=== PATIENT | male | born 1950 | race Caucasian/White ===

== ENCOUNTER → 2017-02-22 | Outpatient (CLI) | payer MEDICARE ==
[~2017-02-22] MED LIST: AMINOPHYLLIN200 MG PO; AMLODIPINE BESYL5 MG PO; CARTIA XT120 MG PO; CIPRO500 MG PO; DIGOXIN0.25 MG PO; ELIQUIS5 M1 PO; FINASTERIDE5 M1 PO; FISH OIL1000 MG PO; FISH OIL500 M1 PO; FOSINOPRIL20 MG PO; LANTUS100 U/ML SC; LOPID600 MG PO; LOPRESSOR100 M1 PO; LOPRESSOR100 MG PO; MACROBID100 M1 PO; MAGOX 400400 MG PO; METFORMIN1000 MG PO; MICRONASE5 MG PO; MULTIPLE VITAMI1 CAP PO; NEURONTIN400 MG PO; NOVOLOG10 ML SC; ONDANSETRON HYDR8 MG PO; ONGLYZA5 MG PO; PRADAXA150 MG PO; PREDNISONE10 MG PO; SYMBICORT1 AE1 INH; TAMSULOSIN HCL0.4 MG PO; VITAMIN D310000 UNI1 PO; ZITHROMAX250 MG PO; ZOCOR10 MG PO; ZOLOFT50 MG PO
== END | disposition home or self-care (01) ==
LOC: RAD 02:57
DX: C34.92 Malignant neoplasm of unspecified part of left bronchus or lung (principal); J38.00 Paralysis of vocal cords and larynx, unspecified

== ENCOUNTER 2017-07-18 15:13 | Emergency (ER) | payer MEDICARE ==
[~2017-07-18] VITALS: Ht 190.5 cm; Wt 113.4 kg
[2017-07-18 16:04] LABS: BILIRUBIN NEGATIVE (NEGATIVE); BLOOD 3+ (NEGATIVE); CLARITY TURBID (CLEAR); COLOR YELLOW (YELLOW); GLUCOSE 3+ (NEGATIVE); KETONE NEGATIVE (NEGATIVE); LEUKO ESTERASE 1+ (NEGATIVE); NITRITE POSITIVE (NEGATIVE); SPECIFIC GRAVITY 1.015 (1.005-1.030); UROBILINOGEN 0.2 E.U./dl (0.2-1.0)
[2017-07-18 16:11] LABS: BACTERIA 4+; EPITHELIAL CELLS 0-2; MUCOUS 1+; RBC TNTC rbc/hpf (0-2); WBC TNTC wbc/hpf (0-5)
[2017-07-18 16:41] LABS: ACT PARTIAL THROMBO TIME 27.1 SECONDS (20.8-31.5)
[2017-07-18 16:44] LABS: ALBUMIN 3.5 gm/dl (3.1-4.5); ALKALINE PHOSPHATASE 86 U/L (45-117); BUN 21 mg/dl (7-24); CHLORIDE 97 mmol/L (98-107); CPK 119 U/L (39-308); CREATININE 1.53 mg/dL (0.70-1.30); LIPASE 144 U/L (73-393); MAGNESIUM 1.7 mg/dL (1.5-2.1); POTASSIUM 4.2 mmol/L (3.5-5.1); SGOT/AST 19 IU/L (3-35); SGPT/ALT 23 U/L (12-78); SODIUM 131 mmol/L (136-145); TOTAL PROTEIN 7.3 gm/dL (6.4-8.2)
[2017-07-18 16:45] LABS: TROPONIN I < 0.015 ng/ml (<0.045)
[2017-07-18 16:49] LABS: BASO % 0.2 % (0.0-1.0); EOS % 0.2 % (1.0-4.0); HEMOGLOBIN 13.8 g/dl (14.0-18.0); LYMPH # 0.9 10*3/uL (1.3-4.4); LYMPH % 8.1 % (27.0-41.0); MEAN CORPUSCULAR HGB 27.3 pg (27.0-31.0); MEAN CORPUSCULAR HGB CONC 32.9 g/dl (33.0-37.0); MEAN PLATELET VOLUME 11.2 fl (9.6-12.3); MONO % 8.7 % (3.0-9.0); NEUT # 9.5 10*3/uL (2.3-7.9); NEUT % 82.5 % (47.0-73.0); PLATELET COUNT AUTOMATED 205 10*3/uL (130-400); RED BLOOD COUNT 5.06 10*6/uL (4.50-5.90); RED CELL DISTRI WIDTH 14.2 % (0-14.5); WHITE BLOOD COUNT 11.5 10*3/uL (4.8-10.8)
[2017-07-18] MEDS ORDERED: AMINOPHYLLIN200 MG PO (18:12)
== END 2017-07-18 19:37 | disposition home or self-care (01) ==
LOC: ED 15:13
PROVIDERS: Emergency Medicine
DX: N39.0 Urinary tract infection, site not specified (principal); I48.91 Unspecified atrial fibrillation; Z79.899 Other long term (current) drug therapy; Z98.890 Other specified postprocedural states; Z98.41 Cataract extraction status, right eye; Z87.891 Personal history of nicotine dependence; Z88.5 Allergy status to narcotic agent; Z88.8 Allergy status to other drugs, medicaments and biological substances

== ENCOUNTER → 2018-04-17 | Outpatient (CLI) | payer MEDICARE ==
[2018-04-17 09:47] LABS: BASO % 0.5 % (0.0-1.0); EOS # 0.2 10*3/uL (0.0-0.4); EOS % 2.9 % (1.0-4.0); HEMATOCRIT 40.6 % (42.0-52.0); HEMOGLOBIN 12.9 g/dl (14.0-18.0); LYMPH # 1.2 10*3/uL (1.3-4.4); LYMPH % 20.7 % (27.0-41.0); MEAN CELL VOLUME 87.5 fl (80.0-94.0); MEAN CORPUSCULAR HGB 27.8 pg (27.0-31.0); MEAN CORPUSCULAR HGB CONC 31.8 g/dl (33.0-37.0); MEAN PLATELET VOLUME 10.8 fl (9.6-12.3); MONO # 0.7 10*3/uL (0.1-1.0); NEUT # 3.5 10*3/uL (2.3-7.9); NEUT % 62.6 % (47.0-73.0); PLATELET COUNT AUTOMATED 184 10*3/uL (130-400); RED BLOOD COUNT 4.64 10*6/uL (4.50-5.90); RED CELL DISTRI WIDTH 14.2 % (0-14.5); WHITE BLOOD COUNT 5.6 10*3/uL (4.8-10.8)
[2018-04-17 10:10] LABS: ALBUMIN 3.8 gm/dl (3.1-4.5); ALKALINE PHOSPHATASE 83 U/L (45-117); BUN 18 mg/dl (7-24); CHLORIDE 103 mmol/L (98-107); CREATININE 1.41 mg/dL (0.70-1.30); POTASSIUM 4.4 mmol/L (3.5-5.1); SGOT/AST 24 IU/L (3-35); SGPT/ALT 35 U/L (12-78); SODIUM 138 mmol/L (136-145); TOTAL PROTEIN 7.2 gm/dL (6.4-8.2)
== END | disposition home or self-care (01) ==
LOC: LAB 08:44
DX: J38.01 Paralysis of vocal cords and larynx, unilateral (principal); R49.0 Dysphonia

== ENCOUNTER → 2018-05-01 | Outpatient (CLI) | payer MEDICARE | END | disposition home or self-care (01) | LOC: CARD 03:04 | DX: J38.01 Paralysis of vocal cords and larynx, unilateral (principal); R49.0 Dysphonia; R94.31 Abnormal electrocardiogram [ECG] [EKG] ==

== ENCOUNTER 2018-11-22 04:50 | Emergency (ER) | payer MEDICARE ==
[~2018-11-22] VITALS: Ht 190.5 cm; Wt 136.1 kg
[2018-11-22 05:39] LABS: HEMATOCRIT 39.4 % (42.0-52.0); HEMOGLOBIN 10.8 g/dl (14.0-18.0); MEAN CELL VOLUME 96.1 fl (80.0-94.0); MEAN CORPUSCULAR HGB 26.3 pg (27.0-31.0); MEAN CORPUSCULAR HGB CONC 27.4 g/dl (33.0-37.0); MEAN PLATELET VOLUME 12.1 fl (9.6-12.3); NUCLEATED RED BLOOD CELL 0.1 10*3/uL (0.0-0.0); NUCLEATED RED BLOOD CELL 1.1 % (0.0-0.0); PLATELET COUNT AUTOMATED 198 10*3/uL (130-400); RED CELL DISTRI WIDTH 15.2 % (0-14.5); WHITE BLOOD COUNT 8.2 10*3/uL (4.8-10.8)
[2018-11-22 06:00] LABS: BURR CELLS FEW; OVALOCYTES FEW; TOTAL CELLS COUNTED 100 #CELLS
[2018-11-22 06:01] LABS: PLATELET SUFFICIENCY NORMAL (NORMAL)
[2018-11-22 06:03] LABS: ALBUMIN 2.8 gm/dl (3.1-4.5); CREATININE 1.8 mg/dL (0.70-1.30); TOTAL PROTEIN 5.8 gm/dL (6.4-8.2)
[2018-11-22 06:05] LABS: TROPONIN I 0.203 ng/ml (<0.045)
== END 2018-11-22 06:59 | disposition expired ==
LOC: ED 04:50
PROVIDERS: Emergency Medicine Emergency Medical Services
DX: I46.9 Cardiac arrest, cause unspecified (principal); I48.91 Unspecified atrial fibrillation; J44.9 Chronic obstructive pulmonary disease, unspecified; E11.9 Type 2 diabetes mellitus without complications; I25.10 Atherosclerotic heart disease of native coronary artery without angina pectoris; E78.5 Hyperlipidemia, unspecified; I10 Essential (primary) hypertension; E66.01 Morbid (severe) obesity due to excess calories; Z85.118 Personal history of other malignant neoplasm of bronchus and lung; Z88.5 Allergy status to narcotic agent; Z88.3 Allergy status to other anti-infective agents; Z79.2 Long term (current) use of antibiotics; Z79.899 Other long term (current) drug therapy; Z79.4 Long term (current) use of insulin; Z87.891 Personal history of nicotine dependence